=== PATIENT | female | born 1985 | race Caucasian/White ===

== ENCOUNTER 2018-04-13 16:49 | Inpatient (IN) | payer MEDICAID ==
[~2018-04-13] VITALS: Ht 154.9 cm; Wt 83.9 kg
[2018-04-13 17:39] LABS: CLARITY/URINE SLIGHTLY CLOUDY (CLEAR); COLOR,URINE YELLOW (YELLOW); GLUCOSE,URINE NEGATIVE (NEGATIVE); PROTEIN URINE 1+ (NEGATIVE)
[2018-04-13 17:40] LABS: BILIRUBIN,URINE 1+ (NEGATIVE); BLOOD, URINE 3+ (NEGATIVE); KETONES,URINE TRACE (NEGATIVE); LEUKOCYTE ESTERASE ,URINE 1+ (NEGATIVE); NITRITE, URINE NEGATIVE (NEGATIVE)
[2018-04-13] MEDS: LR 1,000 ML IV SCH ×3 (17:44→18:13)
[2018-04-13 17:47] LABS: BARBITURATE, URINE NEGATIVE (NEG <=200); BENZODIAZEPINE, URINE NEGATIVE (NEG <=150); COCAINE, URINE NEGATIVE (NEG <=150); METHAMPHETAMINES SCREEN,URINE POSITIVE (NEG <=500); URINE AMPHETAMINE POSITIVE (NEG <=500); URINE METHADONE NEGATIVE (NEG <=200)
[2018-04-13 17:48] LABS: CANNABINOID, URINE POSITIVE (NEG <=50); OPIATE, URINE NEGATIVE (NEG <=100); PHENCYCLIDINE SCREEN,URINE NEGATIVE (NEG <=25); UR TRICYCLIC ANTIDEPRESSANTS NEGATIVE (NEG <=300); URINE OXYCODONE SCREEN NEGATIVE (NEG <=100); URINE PROPOXYPHENE SCREEN NEGATIVE (NEG <=300)
[2018-04-13 17:48] LABS: HEMATOCRIT 33.5 % (36-48); HEMOGLOBIN 11.4 g/dL (12.0-16.0); MEAN CORPUSCULAR HEMOGLOBIN 31 pg (27-31); MEAN CORPUSCULAR HGB CONC 34 % (32-36); MEAN CORPUSCULAR VOLUME 91 fL (79.0-98.0); WHITE BLOOD COUNT (AUTO) 9.7 K/uL (4.8-10.8)
[2018-04-13 17:49] LABS: PLATELET COUNT (AUTO) 427 K/uL (130-430); RED CELL DISTRIBUTION WIDTH 12.1 % (9.0-15.0)
[2018-04-13 17:50] LABS: BACTERIA,URINE MODERATE /HPF (None Seen); MUCUS,URINE 1+ /LPF (None Seen)
[2018-04-13 17:50] LABS: BASOPHILS # (AUTO) 0.1 K/uL (0.0-0.2); BASOPHILS % (AUTO) 0.6 % (0.0-2.0); EOSINOPHILS # (AUTO) 0.1 K/uL (0.0-0.4); EOSINOPHILS % (AUTO) 1.2 % (0.0-4.0); LYMPHOCYTES % (AUTO) 20.5 % (20.5-51.5); MONOCYTES % (AUTO) 10.6 % (1.7-9.3); NEUTROPHILS # (AUTO) 6.5 K/uL (1.8-7.7); NEUTROPHILS % (AUTO) 67.1 % (40.0-70.0)
[2018-04-13] MEDS ORDERED: TERBUTALINE SULFATE 1 MG/ML VIAL SUBCUT ONE (18:15)
[2018-04-13] MEDS ORDERED: TERBUTALINE SULFATE 1 MG/ML VIAL ONE (18:17)
[2018-04-13] MEDS ORDERED: BETAMET ACET/BETAMET NA PH 30 MG/5 ML VIAL IM ONE ×2 (18:45→18:46)
[2018-04-13] MEDS ORDERED: CEFAZOLIN 2 GM IVPB PREMIX 50 ML IV ONE (19:00)
[2018-04-13] MEDS ORDERED: LR 1,000 ML IV.SOLN IV ONE (20:00)
[2018-04-13] MEDS ORDERED: NS IRRIG SOLN 1000 ML IR ONE (20:00)
[2018-04-13] MEDS ORDERED: ONDANSETRON HCL 4 MG/2 ML VIAL IVP ONE (20:00)
[2018-04-13] MEDS ORDERED: OXYTOCIN 10 UNIT/ML VIAL IV ONE (20:00)
[2018-04-13] MEDS ORDERED: BUPIVACAINE /DEX PF 0.75% SPINAL 2 ML AMP INJ ONE (20:00)
[2018-04-13] MEDS ORDERED: MORPHINE SULFATE 10MG/10ML PF AMP EP ONE (20:00)
[2018-04-13] MEDS ORDERED: ONDANSETRON HCL 4 MG/2 ML VIAL IVP PRN (20:30)
[2018-04-13] MEDS ORDERED: DIPHENHYDRAMINE INJ 50 MG/ML VIAL IVP PRN (20:30)
[2018-04-13] MEDS ORDERED: NALOXONE HCL 0.4 MG/ML AMP (NARCAN) IVP PRN ×2 (20:30)
[2018-04-13] MEDS ORDERED: MORPHINE SULFATE 10MG/10ML PF AMP SP SCH (20:30)
[2018-04-13] MEDS ORDERED: KETOROLAC TROMETHAMINE 60 MG/2 ML VIAL IM PRN (20:30)
[2018-04-13] MEDS ORDERED: fentaNYL CITRATE/PF 100 MCG/2 ML AMP IVP PRN ×2 (20:30)
[2018-04-13] MEDS ORDERED: NALBUPHINE HCL 10 MG/ML AMP IVP PRN (20:30)
[2018-04-13] MEDS ORDERED: OXYTOCIN/0.9 % SODIUM CHLORIDE 1,000 ML IV ONE ×2 (20:54→21:13)
[2018-04-13] MEDS ORDERED: LANOLIN 7 GM OINT. TP PRN (21:00)
[2018-04-13] MEDS ORDERED: DIPH-TET-PERTUS Vaccine 0.5 ML VIAL (ADACEL) I.M. PRN (21:00)
[2018-04-13] MEDS ORDERED: METHYLERGONOVINE MALEATE 0.2 MG TABLET PO PRN (21:00)
[2018-04-13] MEDS ORDERED: MEASLES,MUMPS&RUBELLA VACC/PF 12500 UNIT/0.5 ML VIAL SUBQ PRN (21:00)
[2018-04-13] MEDS ORDERED: OXYCODONE/ACETAMINOPHEN 5-325 TABLET PO PRN (21:00)
[2018-04-13] MEDS ORDERED: DERMOPLAST SPRAY TP PRN (21:00)
[2018-04-13] MEDS ORDERED: KETOROLAC TROMETHAMINE 30 MG VIAL IVP ONE (21:00)
[2018-04-13] MEDS ORDERED: SENNOSIDES/DOCUSATE SODIUM 1 TAB TABLET(SENOKOT-S) PO PRN (21:00)
[2018-04-13] MEDS ORDERED: TEMAZEPAM 15 MG CAPSULE PO PRN (21:00)
[2018-04-13] MEDS ORDERED: DOCUSATE SODIUM 100 MG CAPSULE PO PRN (21:00)
[2018-04-13 21:03] VITALS: BP_SYST 109
[2018-04-14] MEDS ORDERED: IBUPROFEN 600 MG TABLET PO SCH
[2018-04-14 08:03] LABS: HEMATOCRIT 33.7 % (36-48); HEMOGLOBIN 11.5 g/dL (12.0-16.0)
[2018-04-14] MEDS: IBUPROFEN 600 MG TABLET PO SCH ×2 (12:34→17:40)
[2018-04-15 08:10] LABS: HEPATITIS B SURFACE AG Negative (Negative)
[2018-04-15 15:26] LABS: RUBELLA AB, IgG <0.90 index (Immune >0.99)
== END 2018-04-14 21:28 | disposition home or self-care (01) | DRG 540 ==
LOC: SPU 16:49 → OBSVTOIN 18:45
PROVIDERS: ADMIT Obstetrics & Gynecology; ATTEND Obstetrics & Gynecology
PROC: 10D00Z1 Extraction of Products of Conception, Low, Open Approach (ICD-10-PCS; principal; 2018-04-14)
DX: O34.211 Maternal care for low transverse scar from previous cesarean delivery (principal); O99.324 Drug use complicating childbirth; F15.90 Other stimulant use, unspecified, uncomplicated; F12.90 Cannabis use, unspecified, uncomplicated; O99.314 Alcohol use complicating childbirth; O99.334 Smoking (tobacco) complicating childbirth; F17.200 Nicotine dependence, unspecified, uncomplicated; Z37.0 Single live birth; Z3A.37 37 weeks gestation of pregnancy; Z59.0 Homelessness; Z72.89 Other problems related to lifestyle
CPT/HCPCS: 36415; 76805-TC; 80307; 81000-TC; 85018-TC; 85025; 86592; 86762; 86886; 86900; 86901; 87086; 87340; 87536; 94760; G0378; J0690; J0702; J2274; J2405; J2590; J3105; J3490; J7120

== ENCOUNTER 2018-08-23 15:37 | Emergency (ER) | payer MEDICAID ==
[~2018-08-23] VITALS: Ht 154.9 cm; Wt 90.7 kg
[2018-08-23 15:41] VITALS: BP_SYST 123
[2018-08-23] MEDS ORDERED: ALBUTEROL SULFATE 0.083% 2.5 MG/3 ML VIAL.NEB INH ONE (16:30)
[2018-08-23] MEDS ORDERED: KETOROLAC TROMETHAMINE 60 MG/2 ML VIAL IM ONE (16:30)
[2018-08-23] MEDS ORDERED: DEXAMETHASONE SOD PHOSPHATE 10 MG/ML VIAL IM ONE (16:30)
[2018-08-23 17:36] VITALS: BP_SYST 123
== END 2018-08-23 17:36 | disposition home or self-care (01) ==
LOC: SED 15:37
DX: J02.9 Acute pharyngitis, unspecified (principal); R03.0 Elevated blood-pressure reading, without diagnosis of hypertension; F17.210 Nicotine dependence, cigarettes, uncomplicated; Z71.6 Tobacco abuse counseling
CPT/HCPCS: 36415; 81025; 86403; 87081; 94640; 96372; 99283; J1100; J1885; J7613

== ENCOUNTER 2019-09-26 12:52 | Emergency (ER) | payer MEDICAID ==
[~2019-09-26] VITALS: Ht 154.9 cm; Wt 81.6 kg
[2019-09-26 14:07] VITALS: BP_SYST 128
[2019-09-26] MEDS ORDERED: ESCI20TA PO (14:07)
--- NOTE | 2019-09-26 14:10 | NUR ---
PATIENT RETURNED TO WAITING ROOM PENDING BED ASSIGNMENT
--- NOTE | 2019-09-26 14:33 | NUR ---
PATIENT NOT FOUND IN WAITING ROOM NOR SURROUNDING AREA
== END 2019-09-26 14:33 | disposition left against medical advice (07) ==
LOC: SED 12:52
DX: R50.9 Fever, unspecified (principal); Z53.21 Procedure and treatment not carried out due to patient leaving prior to being seen by health care provider

== ENCOUNTER 2019-12-07 21:10 | Emergency (ER) | payer MEDICAID ==
[~2019-12-07] VITALS: Ht 154.9 cm; Wt 77.1 kg
[~2019-12-07 21:10] MED LIST: ESCI20TA PO
[2019-12-07 21:14] VITALS: BP_SYST 121
--- NOTE | 2019-12-07 21:20 | NUR ---
Patient to ER bed 06 to gown for evaluation. Side rails up.
--- NOTE | 2019-12-07 21:25 | NUR ---
ER at bedside examining patient.
--- NOTE | 2019-12-07 21:28 | NUR ---
Pt presents to the ER for possible foreign body in eye x today.Pt states helping friend sand down wood and possibly getting wood in her eye. Left eye appears reddness. Denies blurry vision.
--- NOTE | 2019-12-07 21:35 | NUR ---
MD at bedside, provided eye kit and herrera lamp. Md stated did not find any injury to L eye
[2019-12-07] MEDS ORDERED: PROPARACAINE (OPTHANINE 0.5%) 15 ML DROPS OP ONE (21:45)
--- NOTE | 2019-12-07 22:00 | NUR ---
Patient given written and verbal discharge instructions and verbalizes understanding. ER MD discussed with patient the results and treatment provided. Patient in stable condition. ID arm band removed. IV catheter removed intact and dressing applied, no active bleeding. Rx of Neosporin motrin and norco given. Patient educated on pain management and to follow up with PMD. Pain Scale 3/10. Opportunity for questions provided and answered. Medication side effect fact sheet provided.
[2019-12-07 22:01] VITALS: BP_SYST 121
== END 2019-12-07 22:00 | disposition home or self-care (01) ==
LOC: SED 21:10
DX: H57.89 Other specified disorders of eye and adnexa (principal)
CPT/HCPCS: 99283

== ENCOUNTER 2020-03-23 07:58 | Emergency (ER) | payer MEDICAID ==
[~2020-03-23] VITALS: Ht 154.9 cm; Wt 81.6 kg
[2020-03-23 08:10] VITALS: BP_SYST 114
[2020-03-23 08:34] VITALS: BP_SYST 114
== END 2020-03-23 08:24 | disposition home or self-care (01) ==
LOC: SED 07:58
DX: S61.012A Laceration without foreign body of left thumb without damage to nail, initial encounter (principal); W26.8XXA Contact with other sharp object(s), not elsewhere classified, initial encounter; Y93.89 Activity, other specified; Y92.89 Other specified places as the place of occurrence of the external cause; Y99.8 Other external cause status
CPT/HCPCS: 99282

== ENCOUNTER 2020-12-05 17:34 | Emergency (ER) | payer MEDICAID, SELFPAY ==
[~2020-12-05] VITALS: Ht 154.9 cm; Wt 74.8 kg
[2020-12-05 17:34] VITALS: BP_SYST 116
--- NOTE | 2020-12-05 17:34 | NUR ---
Patient triaged and placed in waiting room. VSS and patient appears in no acute distress at this time. Accompanied by SELF, awaiting available bed, and MD notified of need for MSE.
--- NOTE | 2020-12-05 17:54 | NUR ---
PT STATES SHE HAS BEEN HAVING CLICKING IN HER JAW WHEN SHE SWALLOWS, CAUSING PAIN. NOW WITH CONGESTION AND COUGH FOR 1 DAYS, STATES SHE CAN NOT REMEMBER IF SHE HAS EVER BEEN TESTED FOR COVID. PT DID NOT GET VACCINE.
--- NOTE | 2020-12-05 18:11 | NUR ---
DR JOYA OUT TO TRIAGE TENT FOR EVALUATION
--- NOTE | 2020-12-05 18:12 | NUR ---
DR JOYA UNABLE TO LOCATE PT OUTSIDE IN TRIAGE TENT
--- NOTE | 2020-12-05 18:25 | NUR ---
CHECKED OUTSIDE AT TRIAGE TENT, UNABLE TO LOCATE PT. PT IS LWBS
== END 2020-12-05 18:25 | disposition left against medical advice (07) ==
LOC: SED 17:34
DX: R05 Cough (principal); R09.81 Nasal congestion; Z20.822 Contact with and (suspected) exposure to COVID-19; Z53.21 Procedure and treatment not carried out due to patient leaving prior to being seen by health care provider
CPT/HCPCS: 36415

== ENCOUNTER 2023-03-08 11:33 | Emergency (ER) | payer MEDICAID ==
[~2023-03-08] VITALS: Ht 154.9 cm; Wt 72.6 kg
[2023-03-08 11:35] VITALS: BP_SYST 101; PULSE 79; RESP 18; TEMP 97.4; O2SAT 99
[2023-03-08 12:13] LABS: BASOPHILS # (AUTO) 0.1 K/uL (0.0-0.2); BASOPHILS % (AUTO) 0.8 % (0.0-2.0); EOSINOPHILS # (AUTO) 0.2 K/uL (0.0-0.4); EOSINOPHILS % (AUTO) 2.2 % (0.0-4.0); HEMATOCRIT 39.2 % (36-48); HEMOGLOBIN 12.6 g/dL (12.0-16.0); LYMPHOCYTES # (AUTO) 1.5 K/uL (1.0-5.5); MEAN CORPUSCULAR HEMOGLOBIN 31 pg (27-31); MEAN CORPUSCULAR HGB CONC 32 % (32-36); MEAN CORPUSCULAR VOLUME 97 fL (79.0-98.0); MONOCYTES # (AUTO) 0.7 K/uL (0.0-1.0); MONOCYTES % (AUTO) 10.2 % (1.7-9.3); NEUTROPHILS # (AUTO) 4.7 K/uL (1.8-7.7); NEUTROPHILS % (AUTO) 65.8 % (40.0-70.0); PLATELET COUNT (AUTO) 480 K/uL (130-430); RED BLOOD CELL COUNT(AUTO) 4.07 MIL/uL (4.2-6.2); WHITE BLOOD COUNT (AUTO) 7.1 K/uL (4.8-10.8)
[2023-03-08 12:26] LABS: SERUM HCG (QUALITATIVE) NEGATIVE (NEGATIVE)
[2023-03-08 12:30] LABS: ALANINE AMINOTRANSFERASE 18 U/L (12-78); ALBUMIN 3.6 g/dL (3.4-4.8); ANION GAP 6 (5-15); ASPARTATE AMINOTRANSFERASE 12 U/L (10-37); CALCIUM 8.5 mg/dL (8.4-11.0); CARBON DIOXIDE 27 mmol/L (23-29); CHLORIDE 101 mmol/L (98-107); CREATININE 0.64 mg/dL (0.55-1.30); GFR AFRICAN AMERICAN 134 mL/min (>90); GFR NON AFRICAN-AMERICAN 110 mL/min (>90); GLUCOSE 96 mg/dL (74-106); POTASSIUM 3.8 mmol/L (3.5-5.1); SODIUM SERUM 134 mmol/L (136-145); TOTAL BILIRUBIN 0.6 mg/dL (0.0-1.0); TOTAL PROTEIN, SERUM 7.1 g/dL (6.4-8.3); UREA NITROGEN, BLOOD 13 mg/dL (8-21)
[2023-03-08 12:39] LABS: AMYLASE 20 U/L (0-100); LIPASE 13 U/L (16-77)
[2023-03-08 12:40] LABS: BILIRUBIN,URINE NEGATIVE (NEGATIVE); BLOOD, URINE NEGATIVE (NEGATIVE); CLARITY/URINE CLEAR (CLEAR); COLOR,URINE YELLOW (YELLOW); GLUCOSE,URINE NEGATIVE (NEGATIVE); KETONES,URINE NEGATIVE (NEGATIVE); LEUKOCYTE ESTERASE ,URINE NEGATIVE (NEGATIVE); NITRITE, URINE NEGATIVE (NEGATIVE); PROTEIN URINE NEGATIVE (NEGATIVE)
[2023-03-08 12:55] LABS: ACETONE, SERUM NEGATIVE (NEGATIVE)
[2023-03-08] MEDS ORDERED: TRAM50TA2 PO (13:42)
[2023-03-08] MEDS ORDERED: IBUP-1969 PO (13:42)
[2023-03-08 14:00] VITALS: BP_SYST 101; PULSE 79; RESP 18; TEMP 97.4; O2SAT 99
[2023-03-08] MEDS ORDERED: NALOXONE HCL 2 MG/2 ML SYR ONE (21:26)
== END 2023-03-08 13:59 | disposition home or self-care (01) ==
LOC: SED 11:33
DX: K80.20 Calculus of gallbladder without cholecystitis without obstruction (principal); Z79.899 Other long term (current) drug therapy
CPT/HCPCS: 99284; 74176; 80053; 81001; 82009; 82150; 84703; 83690; 85025; 36415; 76376; 81025; 83605; 81003; 82397; J2310

== ENCOUNTER 2023-03-25 15:16 | Emergency (ER) | payer MEDICAID ==
[~2023-03-25] VITALS: Ht 152.4 cm; Wt 70.3 kg
[~2023-03-25 15:16] MED LIST changes: +IBUP-1969 PO; +TRAM50TA2 PO
[2023-03-25 15:46] VITALS: BP_SYST 132; PULSE 73; RESP 18; TEMP 98.3; O2SAT 99
[2023-03-25 17:57] LABS: BASOPHILS # (AUTO) 0.1 K/uL (0.0-0.2); BASOPHILS % (AUTO) 0.8 % (0.0-2.0); EOSINOPHILS # (AUTO) 0.1 K/uL (0.0-0.4); EOSINOPHILS % (AUTO) 1.1 % (0.0-4.0); HEMATOCRIT 39.6 % (36-48); HEMOGLOBIN 12.8 g/dL (12.0-16.0); LYMPHOCYTES # (AUTO) 2.1 K/uL (1.0-5.5); LYMPHOCYTES % (AUTO) 27.8 % (20.5-51.5); MEAN CORPUSCULAR HEMOGLOBIN 31 pg (27-31); MEAN CORPUSCULAR HGB CONC 32 % (32-36); MEAN CORPUSCULAR VOLUME 96 fL (79.0-98.0); MONOCYTES # (AUTO) 0.6 K/uL (0.0-1.0); MONOCYTES % (AUTO) 7.5 % (1.7-9.3); NEUTROPHILS # (AUTO) 4.7 K/uL (1.8-7.7); NEUTROPHILS % (AUTO) 62.8 % (40.0-70.0); PLATELET COUNT (AUTO) 502 K/uL (130-430); RED BLOOD CELL COUNT(AUTO) 4.14 MIL/uL (4.2-6.2); RED CELL DISTRIBUTION WIDTH 13.2 % (9.0-15.0); WHITE BLOOD COUNT (AUTO) 7.5 K/uL (4.8-10.8)
[2023-03-25 18:04] LABS: BILIRUBIN,URINE NEGATIVE (NEGATIVE); BLOOD, URINE NEGATIVE (NEGATIVE); CLARITY/URINE SL CLOUDY (CLEAR); COLOR,URINE YELLOW (YELLOW); GLUCOSE,URINE NEGATIVE (NEGATIVE); KETONES,URINE 1+ (NEGATIVE); LEUKOCYTE ESTERASE ,URINE NEGATIVE (NEGATIVE); NITRITE, URINE NEGATIVE (NEGATIVE); PH,URINE 6.5 (5.0-8.0); PROTEIN URINE NEGATIVE (NEGATIVE); UROBILINOGEN,URINE 0.2 (0.2-1.0)
[2023-03-25 18:11] LABS: ALBUMIN 3.6 g/dL (3.4-4.8); BILIRUBIN,DIRECT 0.2 mg/dL (0.0-0.3); CALCIUM 8.7 mg/dL (8.4-11.0); CREATININE 0.6 mg/dL (0.55-1.30); POTASSIUM 3.5 mmol/L (3.5-5.1); TOTAL BILIRUBIN 0.5 mg/dL (0.0-1.0); TOTAL PROTEIN, SERUM 7.3 g/dL (6.4-8.3)
== END 2023-03-25 21:15 | disposition left against medical advice (07) ==
LOC: SED 15:16
DX: R10.31 Right lower quadrant pain (principal); R10.13 Epigastric pain; R11.0 Nausea; Z87.19 Personal history of other diseases of the digestive system; Z79.899 Other long term (current) drug therapy
CPT/HCPCS: 36415; 76376; 80048; 80076; 81001; 81003; 81025; 83690; 85025; 99284

== ENCOUNTER 2023-03-28 12:34 | Emergency (ER) | payer MEDICAID ==
[~2023-03-28] VITALS: Ht 154.9 cm; Wt 70.3 kg
[2023-03-28 12:36] VITALS: BP_SYST 95; PULSE 90; RESP 22; TEMP 100.1; O2SAT 100
[2023-03-28 15:12] LABS: BASOPHILS % (AUTO) 0.4 % (0.0-2.0); EOSINOPHILS % (AUTO) 0.3 % (0.0-4.0); HEMATOCRIT 38.8 % (36-48); HEMOGLOBIN 13.7 g/dL (12.0-16.0); LYMPHOCYTES # (AUTO) 0.5 K/uL (1.0-5.5); LYMPHOCYTES % (AUTO) 9.2 % (20.5-51.5); MEAN CORPUSCULAR HEMOGLOBIN 34 pg (27-31); MEAN CORPUSCULAR HGB CONC 35 % (32-36); MEAN CORPUSCULAR VOLUME 95 fL (79.0-98.0); MONOCYTES # (AUTO) 1.1 K/uL (0.0-1.0); NEUTROPHILS # (AUTO) 3.7 K/uL (1.8-7.7); NEUTROPHILS % (AUTO) 69.1 % (40.0-70.0); PLATELET COUNT (AUTO) 396 K/uL (130-430); RED BLOOD CELL COUNT(AUTO) 4.07 MIL/uL (4.2-6.2); RED CELL DISTRIBUTION WIDTH 13.3 % (9.0-15.0); WHITE BLOOD COUNT (AUTO) 5.3 K/uL (4.8-10.8)
[2023-03-28 15:22] LABS: CALCIUM 8.9 mg/dL (8.4-11.0); CREATININE 0.79 mg/dL (0.55-1.30); POTASSIUM 3.6 mmol/L (3.5-5.1)
[2023-03-28 15:26] LABS: ALBUMIN 3.9 g/dL (3.4-4.8); BILIRUBIN,DIRECT 0.1 mg/dL (0.0-0.3); TOTAL BILIRUBIN 0.4 mg/dL (0.0-1.0); TOTAL PROTEIN, SERUM 7.7 g/dL (6.4-8.3)
== END 2023-03-28 17:13 | disposition left against medical advice (07) ==
LOC: SED 12:34
DX: K80.20 Calculus of gallbladder without cholecystitis without obstruction (principal); Z53.21 Procedure and treatment not carried out due to patient leaving prior to being seen by health care provider
CPT/HCPCS: 36415; 80048; 80076; 83690; 85025; 99281

== ENCOUNTER 2023-11-02 18:14 | Emergency (ER) | payer SELFPAY ==
[~2023-11-02] VITALS: Ht 154.9 cm; Wt 68.0 kg
[2023-11-02 18:29] VITALS: BP_SYST 124; PULSE 79; RESP 18; TEMP 98.4; O2SAT 98
[2023-11-02] MEDS ORDERED: IBUP-1969 PO (20:12)
[2023-11-02] MEDS ORDERED: CEPH-548 PO (20:12)
[2023-11-02 20:20] VITALS: BP_SYST 124; PULSE 66; RESP 20; TEMP 98.5; O2SAT 98
== END 2023-11-02 20:20 | disposition home or self-care (01) ==
LOC: SED 18:14
DX: L03.211 Cellulitis of face (principal); R03.0 Elevated blood-pressure reading, without diagnosis of hypertension; F17.210 Nicotine dependence, cigarettes, uncomplicated; Z98.890 Other specified postprocedural states; Z79.899 Other long term (current) drug therapy; Z79.2 Long term (current) use of antibiotics
CPT/HCPCS: 99283

== ENCOUNTER 2024-01-28 17:05 | Emergency (ER) | payer SELFPAY ==
[~2024-01-28] VITALS: Ht 157.5 cm; Wt 56.7 kg
[2024-01-28 17:05] VITALS: BP_SYST 119; PULSE 109; RESP 19; TEMP 99.3; O2SAT 98
[~2024-01-28 17:05] MED LIST changes: +CEPH-548 PO
[2024-01-28 18:32] LABS: COVID19 ANTIGEN SOFIA FIA NEGATIVE (NEGATIVE)
[2024-01-28 18:57] LABS: INFLUENZA TYPE A Negative (NEGATIVE); INFLUENZA TYPE B NEGATIVE (NEGATIVE)
[2024-01-28] MEDS: KETOROLAC TROMETHAMINE 60 MG/2 ML VIAL IM ONE (20:07)
[2024-01-28 20:44] LABS: BASOPHILS # (AUTO) 0.1 K/uL (0.0-0.2); BASOPHILS % (AUTO) 0.4 % (0.0-2.0); EOSINOPHILS % (AUTO) 0.3 % (0.0-4.0); HEMATOCRIT 38.7 % (36-48); HEMOGLOBIN 13.4 g/dL (12.0-16.0); LYMPHOCYTES # (AUTO) 2.3 K/uL (1.0-5.5); LYMPHOCYTES % (AUTO) 15.4 % (20.5-51.5); MEAN CORPUSCULAR HEMOGLOBIN 33 pg (27-31); MEAN CORPUSCULAR HGB CONC 35 % (32-36); MEAN CORPUSCULAR VOLUME 95 fL (79.0-98.0); MONOCYTES # (AUTO) 1.4 K/uL (0.0-1.0); MONOCYTES % (AUTO) 9.5 % (1.7-9.3); NEUTROPHILS % (AUTO) 74.4 % (40.0-70.0); PLATELET COUNT (AUTO) 460 K/uL (130-430); RED BLOOD CELL COUNT(AUTO) 4.06 MIL/uL (4.2-6.2); RED CELL DISTRIBUTION WIDTH 12.9 % (9.0-15.0); WHITE BLOOD COUNT (AUTO) 14.8 K/uL (4.8-10.8)
[2024-01-28 21:00] LABS: CREATININE 1.06 mg/dL (0.55-1.30); POTASSIUM 3.4 mmol/L (3.5-5.1)
[2024-01-28 21:11] LABS: BILIRUBIN,URINE NEGATIVE (NEGATIVE); BLOOD, URINE 1+ (NEGATIVE); CLARITY/URINE CLEAR (CLEAR); COLOR,URINE YELLOW (YELLOW); GLUCOSE,URINE NEGATIVE (NEGATIVE); KETONES,URINE TRACE (NEGATIVE); LEUKOCYTE ESTERASE ,URINE NEGATIVE (NEGATIVE); NITRITE, URINE NEGATIVE (NEGATIVE); PROTEIN URINE NEGATIVE (NEGATIVE); UROBILINOGEN,URINE 0.2 (0.2-1.0)
[2024-01-28] MEDS: NACL 0.9% 1,000 ML IV ONE (21:14)
[2024-01-28 21:21] LABS: BACTERIA,URINE RARE /HPF (None Seen)
[2024-01-28] MEDS ORDERED: CIPR500T5 PO (21:56)
[2024-01-28] MEDS ORDERED: IBUP-1969 PO (21:56)
[2024-01-28] MEDS ORDERED: TRAM50TA2 PO (21:56)
[2024-01-28] MEDS ORDERED: cefTRIAXone 1 GM VIAL ONE (22:04)
[2024-01-28] MEDS: cefTRIAXone 1 GM in D5W 50 ML IV ONE (22:07)
[2024-01-28 22:44] VITALS: BP_SYST 123; PULSE 72; RESP 19; TEMP 97.5; O2SAT 97
== END 2024-01-28 22:46 | disposition home or self-care (01) ==
LOC: SED 17:05
DX: N39.0 Urinary tract infection, site not specified (principal); B34.9 Viral infection, unspecified; Z20.822 Contact with and (suspected) exposure to COVID-19; Z98.890 Other specified postprocedural states; Z79.899 Other long term (current) drug therapy; Z79.2 Long term (current) use of antibiotics
CPT/HCPCS: 99284; 96365; 96361; 87426; 80048; 81001; 85025; 87040; 36415; 81025; 83605; 87804 ×2; 96372; J0696; J1885; J7030; 81000; 81015